=== PATIENT | male | born 1980 | race Two or more races ===

== ENCOUNTER 2023-03-05 22:03 | Emergency (ER) | payer BC, OTHER ==
[~2023-03-05] VITALS: Ht 188 cm; Wt 108.9 kg
--- NOTE | 2023-03-05 22:35 | NUR ---
[id number] C/O CP X2 HRS. [facility] ADMINISTERED ZOFRAN 4MG, NITRO IN 1 SPRAY, ASP 325MG. +N/V. PLACED IN BED, AAOX4, BREATHING EVEN AND UNLABORED SATURATING AT 96%RA, IN PAIN 2/10 PS
--- NOTE | 2023-03-05 22:39 | NUR ---
EMT AT PT'S BEDSIDE FOR EKG
--- NOTE | 2023-03-05 22:47 | NUR ---
BLOOD DRAWN AND SENT TO LAB
[2023-03-05] MEDS ORDERED: ONDANSETRON HCL/PF 4 MG/2 ML VIAL ONE (22:48)
[2023-03-05] MEDS ORDERED: ONDANSETRON HCL/PF 4 MG/2 ML VIAL IV ONE (23:00)
[2023-03-05 23:31] LABS: BASOPHILS % (AUTO) 0.5 % (0.0-2.0); EOSINOPHILS % (AUTO) 0.7 % (0.0-6.0); HEMATOCRIT 49 % (39-51); HEMOGLOBIN 16.3 g/dL (13.5-17.5); LYMPHOCYTES % (AUTO) 20.4 % (20.0-44.0); MEAN CORPUSCULAR HGB CONC 34 g/dl (31.0-36.0); MEAN CORPUSCULAR VOLUME 86 fL (80-96); MONOCYTES # (AUTO) 0.3 K/uL (0.1-1.30); NEUTROPHILS # (AUTO) 7.3 K/uL (1.8-8.9); NEUTROPHILS % (AUTO) 75.4 % (43.0-81.0); PLATELET COUNT (AUTO) 288 K/uL (150-450); RED BLOOD CELL COUNT(AUTO) 5.65 MIL/uL (4.5-6.0); WHITE BLOOD COUNT (AUTO) 9.7 K/uL (4.3-11.0)
[2023-03-05 23:51] LABS: CALCIUM, SERUM 9.4 mg/dL (8.5-10.1); CARBON DIOXIDE 29 mmol/L (21-32); CHLORIDE 103 mmol/L (98-107); CREATININE 1.3 mg/dL (0.6-1.3); GLUCOSE 93 mg/dL (74-106); POTASSIUM 3.9 mmol/L (3.5-5.1); SODIUM SERUM 139 mmol/L (136-145); UREA NITROGEN, BLOOD 20 mg/dL (7-18)
[2023-03-06 00:02] LABS: ALANINE AMINOTRANSFERASE 50 U/L (12-78); ALBUMIN 3.7 g/dL (3.4-5.0); ALKALINE PHOSPHATASE 103 U/L (46-116); ASPARTATE AMINOTRANSFERASE 26 U/L (15-37); BILIRUBIN,DIRECT 0.1 mg/dL (0.0-0.2); BILIRUBIN,TOTAL 0.2 mg/dL (0.2-1.0); TOTAL PROTEIN, SERUM 7.3 g/dL (6.4-8.2)
[2023-03-06] MEDS ORDERED: AZITHROMYCIN 250 MG TABLET PO ONE (02:00)
[2023-03-06] MEDS ORDERED: AZIT250T13 PO (02:02)
[2023-03-06] MEDS ORDERED: AZITHROMYCIN 250 MG TABLET ONE (02:12)
--- NOTE | 2023-03-06 02:19 | NUR ---
IV removed. Catheter intact and site benign. Pressure and 4x4 applied to site. No bleeding noted.
--- NOTE | 2023-03-06 02:20 | NUR ---
Patient discharged to home in stable condition. Written and verbal after care instructions given. Patient verbalizes understanding of instruction.IV removed. Catheter intact and site benign. Pressure and 4x4 applied to site. No bleeding noted. Pt ambulatory with a steady gait
--- NOTE | 2023-03-06 02:25 | NUR ---
CALLED [facility] NO ANSWER. MESSAGE LEFT.
--- NOTE | 2023-03-06 04:40 | NUR ---
CALLED [facility] FOR PT RETAIL RECEIVING CLERK. STILL NO ANSWER.
--- NOTE | 2023-03-06 05:36 | NUR ---
CALLED [facility] TO NOTIFY THEM OF PATIENT'S TRANSPORT BACK TO THEIR FACILITY; NO ANSWER
--- NOTE | 2023-03-06 05:50 | NUR ---
STILL NO ANSWER FROM FACILITY UPON CALLING.
--- NOTE | 2023-03-06 05:58 | NUR ---
JUAN FROM [facility] CALLED BACK AND SENDING AN UBER
--- NOTE | 2023-03-06 06:00 | NUR ---
PT PICKED UP BY [facility]
[2023-03-06 06:08] VITALS: BP 117/63
== END 2023-03-06 06:09 ==
LOC: ER 22:06
DX: R07.9 Chest pain, unspecified (principal); J18.9 Pneumonia, unspecified organism; Z20.822 Contact with and (suspected) exposure to COVID-19; F17.200 Nicotine dependence, unspecified, uncomplicated
CPT/HCPCS: 99285; 96374; 71045; 93005; 85025; 80048; 80076; 36415 ×2; 84484 ×2; 85730; 87426; J2405; C9803